=== PATIENT | female | born 1960 | race Caucasian/White ===

== ENCOUNTER 2023-05-09 11:49 | Emergency (ER) | payer BC, OTHER ==
[2023-05-09 11:56] VITALS: BP 135/86; PULSE 70; RESP 18; TEMP 97.7; BMI 26.4
[2023-05-09] MEDS ORDERED: LIDOCAINE HCL 1%, 10 MG/ML (20ML VIAL) ONE (13:22)
[2023-05-09] MEDS: LIDOCAINE HCL 1%, 10 MG/ML (50 mL VIAL) SQ ONE (13:29)
[2023-05-09] MEDS ORDERED: BACITRACIN 0.9 GM PACKET ONE (14:06)
[2023-05-09 14:21] LABS: BASO % 0.4 % (0-2.0); HEMATOCRIT 40.1 % (32.4-45.2); HEMOGLOBIN 13.2 GM/dL (10.7-15.3); LYMPH % 13.8 % (8-40); MCH 30.3 pg (25.7-33.7); MEAN CELL VOLUME 91.7 fl (80-96); MEAN PLT VOLUME 9.4 fl (7.5-11.1); MONO % 4.8 % (3.8-10.2); PLATELET COUNT 279 10^3/uL (134-434); RBC 4.37 M/mm3 (3.60-5.2); RDW 14.2 % (11.6-15.6); WHITE BLOOD COUNT 7.8 K/mm3 (4.0-10.0)
[2023-05-09] MEDS: BACITRACIN ZINC 15 GM TUBE TOPICAL OINTMENT TP ONE (14:29)
[2023-05-09] MEDS: SODIUM CHLORIDE 0.9% 500 ML INFUS.BAG IV ONE (14:29)
[2023-05-09 14:45] LABS: POTASSIUM 4.6 mmol/L (3.5-5.1)
[2023-05-09 14:48] LABS: BLOOD UREA NITROGEN 13.3 mg/dL (7-18)
[2023-05-09 14:51] LABS: BILIRUBIN,TOTAL 0.3 mg/dL (0.2-1); CREATININE 0.7 mg/dL (0.55-1.3)
[2023-05-09 14:52] LABS: TOT PROT 7.8 g/dl (6.4-8.2)
== END 2023-05-09 16:00 | disposition home or self-care (01) ==
LOC: JER 11:49
PROC: 0HQ0XZZ Repair Scalp Skin, External Approach (ICD-10-PCS; principal; 2023-05-09)
DX: S01.01XA Laceration without foreign body of scalp, initial encounter (principal); E86.0 Dehydration; R11.0 Nausea; W18.39XA Other fall on same level, initial encounter; Y92.009 Unspecified place in unspecified non-institutional (private) residence as the place of occurrence of the external cause
CPT/HCPCS: 36415; 70450-TC; 72125-TC; 80053; 84484; 85025; 93005; 93010; 99285-25